=== PATIENT | male | born 1995 | race Caucasian/White ===

== ENCOUNTER 2024-03-26 11:27 | Emergency (ER) | payer SELFPAY ==
[~2024-03-26] VITALS: Ht 188 cm; Wt 90.7 kg
[2024-03-26 11:29] VITALS: O2SAT 100
[2024-03-26] MEDS: TETANUS, DIPHTHERIA, PERTUSSIS VAC/PF 0.5ML (>10YR OLD) IM ONE (12:00)
[2024-03-26] MEDS: BACITRACIN ZINC OINT UDPKT TOP ONE (12:00)
[2024-03-26] MEDS: LIDOCAINE HCL/PF 1% 10 MG/ML 5ML VIAL INFIL ONE (12:00)
[2024-03-26] MEDS ORDERED: CEPH500T MT (13:35)
[2024-03-26] MEDS ORDERED: BO1 TP (13:35)
[2024-03-26 13:46] VITALS: BP 137/93; PULSE 62; RESP 18; TEMP 98.5
== END 2024-03-26 13:53 | disposition home or self-care (01) ==
LOC: ER 11:27
DX: S61.411A Laceration without foreign body of right hand, initial encounter (principal); Z90.49 Acquired absence of other specified parts of digestive tract; W18.39XA Other fall on same level, initial encounter; Y93.89 Activity, other specified; Y92.89 Other specified places as the place of occurrence of the external cause; Y99.8 Other external cause status
CPT/HCPCS: 73130; 90715; 12002; 90471; 99283; J3490; Z7610 ×3